=== PATIENT | female | born 1950 | race Two or more races ===

== ENCOUNTER 2021-10-21 04:42 | Day surgery (SDC) | payer OTHER ==
[2021-10-17 08:37] VITALS: BMI 27.1
[2021-10-21] MEDS ORDERED: MIDAZOLAM HCL 2 MG/2 ML SINGLE DOSE VIAL ONE (09:31)
[2021-10-21] MEDS ORDERED: SODIUM CHLORIDE 500 ML IV SCH (10:35)
[2021-10-21] MEDS ORDERED: MIDAZOLAM HCL 2 MG/2 ML SINGLE DOSE VIAL IVPUSH ONE (10:48)
[2021-10-21 11:05] LABS: BASO % 0.3 % (0-2.0); EOS % 0.4 % (0-4.5); HEMATOCRIT 34.3 % (32.4-45.2); HEMOGLOBIN 10.5 GM/dL (10.7-15.3); LYMPH % 12.1 % (8-40); MCH 24.9 pg (25.7-33.7); MCHC 30.8 g/dl (32.0-36.0); MEAN CELL VOLUME 80.9 fl (80-96); MEAN PLT VOLUME 9.8 fl (7.5-11.1); NEUT % 78.2 % (42.8-82.8); PLATELET COUNT 165 10^3/uL (134-434); RBC 4.24 M/mm3 (3.60-5.2); RDW 14.3 % (11.6-15.6); WHITE BLOOD COUNT 14.3 K/mm3 (4.0-10.0)
[2021-10-21 11:28] LABS: CALCIUM 9.3 mg/dL (8.5-10.1)
[2021-10-21 11:29] LABS: BLOOD UREA NITROGEN 15.9 mg/dL (7-18); MAGNESIUM 1.6 mg/dL (1.8-2.4)
[2021-10-21 11:32] LABS: CREATININE 0.6 mg/dL (0.55-1.3)
[2021-10-21 11:33] LABS: BILIRUBIN,TOTAL 0.9 mg/dL (0.2-1); TOT PROT 7.1 g/dl (6.4-8.2)
[2021-10-21] MEDS ORDERED: DEXTROSE 5%-NORMAL SALINE 500 ML IV ONE (12:00)
[2021-10-21] MEDS ORDERED: PALONOSETRON HCL 0.25 MG/5 ML VIAL IVPUSH ONE (12:30)
[2021-10-21] MEDS ORDERED: FOSAPREPITANT DIMEGLUMINE 150 MG in SODIUM CHLORIDE 145 ML IVPB ONE (12:30)
[2021-10-21] MEDS ORDERED: DEXAMETHASONE INJECTION 10 MG in SODIUM CHLORIDE 50 ML IVPB ONE (12:30)
[2021-10-21] MEDS ORDERED: SODIUM CHLORIDE IV ONE ×2 (13:00→14:00)
[2021-10-21] MEDS ORDERED: CISPLATIN IV ONE (13:00)
[2021-10-21] MEDS ORDERED: GEMCITABINE HCL IV ONE (14:00)
[2021-10-21] MEDS ORDERED: D5-NS + 40 MEQ KCL - 40 MEQ/1,000 ML INFUS.BAG IV SCH (14:30)
[2021-10-21] MEDS ORDERED: MAGNESIUM SULFATE IN WATER 2 GM/50 ML IVPB IVPB ONE (15:00)
[2021-10-21 17:44] VITALS: BP 123/63; PULSE 94; TEMP 98.1
[2021-10-21] MEDS ORDERED: PORTA CATH FLUSH 10 ML IVPUSH ONE ×2 (17:44→17:51)
[2021-10-22] MEDS ORDERED: PORTA CATH FLUSH 10 ML IVPUSH ONE (07:47)
== END 2021-10-21 19:05 | disposition home or self-care (01) ==
LOC: JRADIR 04:42
PROVIDERS: ATTEND Internal Medicine Hematology & Oncology
PROC: 0JH63XZ Insertion of Tunneled Vascular Access Device into Chest Subcutaneous Tissue and Fascia, Percutaneous Approach (ICD-10-PCS; principal; 2021-10-21)
PROC: 02HV33Z Insertion of Infusion Device into Superior Vena Cava, Percutaneous Approach (ICD-10-PCS; 2021-10-21)
PROC: B518ZZA Fluoroscopy of Superior Vena Cava, Guidance (ICD-10-PCS; 2021-10-21)
DX: C23 Malignant neoplasm of gallbladder (principal)
CPT/HCPCS: 36561; 96361; 96367; 96375; 96413; 96417; C1788; 36415; 80053; 83735; 85025; J1100; J1453; J2469; J9201

== ENCOUNTER 2021-10-27 07:49 | Day surgery (SDC) | payer OTHER ==
[2021-10-27] MEDS ORDERED: DEXTROSE 5%-NORMAL SALINE 500 ML IV ONE (10:00)
[2021-10-27] MEDS ORDERED: DEXAMETHASONE INJECTION 10 MG in SODIUM CHLORIDE 50 ML IVPB ONE (10:30)
[2021-10-27] MEDS ORDERED: PALONOSETRON HCL 0.25 MG/5 ML VIAL IVPUSH ONE (10:30)
[2021-10-27] MEDS ORDERED: FOSAPREPITANT DIMEGLUMINE 150 MG in SODIUM CHLORIDE 145 ML IVPB ONE (10:30)
[2021-10-27 10:43] LABS: BASO % 0.8 % (0-2.0); HEMATOCRIT 36.2 % (32.4-45.2); LYMPH % 38.4 % (8-40); MCH 24.7 pg (25.7-33.7); MCHC 30.4 g/dl (32.0-36.0); MEAN CELL VOLUME 81.3 fl (80-96); MEAN PLT VOLUME 8.4 fl (7.5-11.1); MONO % 3.2 % (3.8-10.2); NEUT % 54.6 % (42.8-82.8); PLATELET COUNT 149 10^3/uL (134-434); RBC 4.46 M/mm3 (3.60-5.2); RDW 14.4 % (11.6-15.6); WHITE BLOOD COUNT 4.3 K/mm3 (4.0-10.0)
[2021-10-27 10:46] LABS: EPI CELLS >36 /uL (0-25.1); HYALINE CASTS 2 /uL (0-3.1); URINE APPEARANCE CLEAR; URINE BACTERIA 79 /uL (0-1359); URINE BILIRUBIN NEGATIVE (NEGATIVE); URINE COLOR YELLOW; URINE GLUCOSE (UA) NEGATIVE (NEGATIVE); URINE KETONE NEGATIVE (NEGATIVE); URINE LEUK ESTERASE TRACE (NEGATIVE); URINE NITRITE NEGATIVE (NEGATIVE); URINE PROTEIN TRACE (NEGATIVE); URINE RBC 10 /uL (0-23.9); URINE UROBILINOGEN 0.2 mg/dL (0.2-1.0); URINE WBC 23 /uL (0-25.8)
[2021-10-27] MEDS ORDERED: CISPLATIN IV ONE (11:00)
[2021-10-27] MEDS ORDERED: SODIUM CHLORIDE IV ONE ×2 (11:00→12:00)
[2021-10-27 11:23] LABS: CALCIUM 9.5 mg/dL (8.5-10.1)
[2021-10-27 11:24] LABS: ALBUMIN 3.1 g/dl (3.4-5.0); BLOOD UREA NITROGEN 18.4 mg/dL (7-18)
[2021-10-27 11:26] LABS: BILIRUBIN,DIRECT 0.2 mg/dL (0.0-0.2)
[2021-10-27 11:27] LABS: CREATININE 0.6 mg/dL (0.55-1.3)
[2021-10-27 11:28] LABS: BILIRUBIN,TOTAL 0.5 mg/dL (0.2-1); TOT PROT 7.4 g/dl (6.4-8.2)
[2021-10-27] MEDS ORDERED: GEMCITABINE HCL IV ONE (12:00)
[2021-10-27] MEDS ORDERED: MAGNESIUM SULFATE IN WATER 2 GM/50 ML IVPB IVPB ONE (12:30)
[2021-10-27] MEDS ORDERED: D5-NS + 40 MEQ KCL - 20 MEQ/500 ML INFUS.BAG IV ONE (12:30)
[2021-10-27] MEDS ORDERED: LIDOCAINE 5% TOPICAL PATCH TP ONE (13:17)
[2021-10-27] MEDS ORDERED: ACETAMINOPHEN 325 MG TABLET (FP) PO ONE (13:17)
[2021-10-27 16:59] VITALS: TEMP 98.2
[2021-10-27 17:34] VITALS: BP 148/72; PULSE 65
[2021-10-27] MEDS ORDERED: LIDOCAINE PATCH REMOVAL MC ONE (22:00)
== END 2021-10-27 17:43 | disposition home or self-care (01) ==
LOC: JONCNONCHE 07:49
PROVIDERS: ATTEND Internal Medicine Hematology & Oncology
PROC: 02HV33Z Insertion of Infusion Device into Superior Vena Cava, Percutaneous Approach (ICD-10-PCS; principal; 2021-10-27)
PROC: 3E04305 Introduction of Other Antineoplastic into Central Vein, Percutaneous Approach (ICD-10-PCS; 2021-10-27)
DX: Z51.11 Encounter for antineoplastic chemotherapy (principal); C23 Malignant neoplasm of gallbladder
CPT/HCPCS: 36561; 96361; 96366; 96367; 96375; 96413; 96417; C1788; 36415; 80048; 80076; 81003; 83735; 85025; 87040; 87070; 87075; 87086; 87186; 87205; 93970-TC; J1100; J1453; J2469; J9201

== ENCOUNTER 2021-10-28 06:57 | Day surgery (SDC) | payer OTHER ==
[2021-10-28] MEDS ORDERED: PEGFILGRASTIM-CBQV (UDENYCA) 6 MG/0.6 ML SYRINGE SQ ONE (10:00)
[2021-10-28 15:56] VITALS: BP 119/59; PULSE 76; TEMP 98.1
== END 2021-10-28 15:30 | disposition home or self-care (01) ==
LOC: JONCCHEMO 06:57
PROVIDERS: ATTEND Internal Medicine Hematology & Oncology
PROC: 3E013GC Introduction of Other Therapeutic Substance into Subcutaneous Tissue, Percutaneous Approach (ICD-10-PCS; principal; 2021-10-28)
DX: C23 Malignant neoplasm of gallbladder (principal); Z76.89 Persons encountering health services in other specified circumstances
CPT/HCPCS: 96372; Q5111

== ENCOUNTER 2021-11-11 07:03 | Day surgery (SDC) | payer OTHER ==
[2021-11-11] MEDS ORDERED: IRON SUCROSE INJECTION 100 MG in SODIUM CHLORIDE 100 ML IVPB ONE (09:30)
[2021-11-11] MEDS ORDERED: DEXTROSE 5%-NORMAL SALINE 500 ML IV ONE (10:00)
[2021-11-11] MEDS ORDERED: ACETAMINOPHEN 325 MG TABLET (FP) PO ONE (10:15)
[2021-11-11] MEDS ORDERED: LIDOCAINE 5% TOPICAL PATCH TP ONE (10:15)
[2021-11-11] MEDS ORDERED: DEXAMETHASONE INJECTION 10 MG in SODIUM CHLORIDE 50 ML IVPB ONE (10:30)
[2021-11-11] MEDS ORDERED: FOSAPREPITANT DIMEGLUMINE 150 MG in SODIUM CHLORIDE 145 ML IVPB ONE (10:30)
[2021-11-11] MEDS ORDERED: PALONOSETRON HCL 0.25 MG/5 ML VIAL IVPUSH ONE (10:30)
[2021-11-11] MEDS ORDERED: SODIUM CHLORIDE IV ONE ×2 (11:00→12:00)
[2021-11-11] MEDS ORDERED: CISPLATIN IV ONE (11:00)
[2021-11-11 11:18] LABS: HEMATOCRIT 31.8 % (32.4-45.2); HEMOGLOBIN 10.1 GM/dL (10.7-15.3); MCH 26.2 pg (25.7-33.7); MCHC 31.9 g/dl (32.0-36.0); MEAN CELL VOLUME 82.1 fl (80-96); MEAN PLT VOLUME 8.6 fl (7.5-11.1); PLATELET COUNT 421 10^3/uL (134-434); RBC 3.87 M/mm3 (3.60-5.2); RDW 17.2 % (11.6-15.6); WHITE BLOOD COUNT 16.2 K/mm3 (4.0-10.0)
[2021-11-11 11:33] LABS: CALCIUM 8.9 mg/dL (8.5-10.1)
[2021-11-11 11:34] LABS: ALBUMIN 3.2 g/dl (3.4-5.0); BLOOD UREA NITROGEN 20.5 mg/dL (7-18); MAGNESIUM 2.1 mg/dL (1.8-2.4)
[2021-11-11 11:36] LABS: BILIRUBIN,DIRECT 0.1 mg/dL (0.0-0.2); CREATININE 0.7 mg/dL (0.55-1.3)
[2021-11-11 11:38] LABS: BILIRUBIN,TOTAL 0.4 mg/dL (0.2-1); TOT PROT 7.6 g/dl (6.4-8.2)
[2021-11-11] MEDS ORDERED: GEMCITABINE HCL IV ONE (12:00)
[2021-11-11] MEDS ORDERED: MAGNESIUM SULFATE IN WATER 2 GM/50 ML IVPB IVPB ONE (12:30)
[2021-11-11] MEDS ORDERED: D5-NS + 40 MEQ KCL - 20 MEQ/500 ML INFUS.BAG IV ONE (12:30)
[2021-11-11 12:40] LABS: ANISOCYTOSIS 0; HELMET CELLS 0; HOWELL-JOLLY BODIES 0; MACROCYTOSIS 0; OVALOCYTE 0; PLATELET ESTIMATE NORMAL; ROULEAU 0; SICKELED CELLS 0; TARGET CELLS 0; TEAR DROP CELLS 0; TOXIC GRANULATION 0
[2021-11-11 13:47] VITALS: TEMP 99
[2021-11-11 17:04] VITALS: BP 118/55; PULSE 74
[2021-11-11] MEDS ORDERED: LIDOCAINE PATCH REMOVAL MC ONE (22:00)
== END 2021-11-11 17:58 | disposition home or self-care (01) ==
LOC: JONCCHEMO 07:03
PROVIDERS: ATTEND Internal Medicine Hematology & Oncology
DX: Z51.11 Encounter for antineoplastic chemotherapy (principal); C23 Malignant neoplasm of gallbladder; E61.1 Iron deficiency
CPT/HCPCS: 36415; 80048; 80076; 83735; 85025; 96361; 96366; 96367; 96375; 96413; 96417; J1100; J1453; J1756; J2469; J9201

== ENCOUNTER 2021-11-17 07:00 | Day surgery (SDC) | payer OTHER ==
[2021-11-17] MEDS ORDERED: DEXTROSE 5%-NORMAL SALINE 500 ML IV ONE (09:00)
[2021-11-17] MEDS ORDERED: IRON SUCROSE INJECTION 100 MG in SODIUM CHLORIDE 100 ML IVPB ONE (09:30)
[2021-11-17] MEDS ORDERED: DEXAMETHASONE SODIUM PHOSPHATE 10 MG in SODIUM CHLORIDE 50 ML IVPB ONE (10:00)
[2021-11-17] MEDS ORDERED: FOSAPREPITANT DIMEGLUMINE 150 MG in SODIUM CHLORIDE 145 ML IVPB ONE (10:00)
[2021-11-17] MEDS ORDERED: PALONOSETRON HCL 0.25 MG/5 ML VIAL IVPUSH ONE (10:00)
[2021-11-17] MEDS ORDERED: SODIUM CHLORIDE IV ONE ×2 (10:30→11:30)
[2021-11-17] MEDS ORDERED: CISPLATIN IV ONE (10:30)
[2021-11-17] MEDS ORDERED: GEMCITABINE HCL IV ONE (11:30)
[2021-11-17] MEDS ORDERED: D5-NS + 40 MEQ KCL - 20 MEQ/500 ML INFUS.BAG IV ONE (12:00)
[2021-11-17 12:37] LABS: EOS % 0.4 % (0-4.5); HEMATOCRIT 28.9 % (32.4-45.2); HEMOGLOBIN 9.3 GM/dL (10.7-15.3); LYMPH % 27.7 % (8-40); MCH 26.6 pg (25.7-33.7); MCHC 32.4 g/dl (32.0-36.0); MEAN CELL VOLUME 82.3 fl (80-96); MEAN PLT VOLUME 8.1 fl (7.5-11.1); MONO % 4.6 % (3.8-10.2); NEUT % 65.3 % (42.8-82.8); PLATELET COUNT 417 10^3/uL (134-434); RBC 3.51 M/mm3 (3.60-5.2); RDW 18.9 % (11.6-15.6); WHITE BLOOD COUNT 6.7 K/mm3 (4.0-10.0)
[2021-11-17 12:51] LABS: BLOOD UREA NITROGEN 17.1 mg/dL (7-18); CALCIUM 9.2 mg/dL (8.5-10.1)
[2021-11-17 12:52] LABS: ALBUMIN 3.3 g/dl (3.4-5.0); MAGNESIUM 2.1 mg/dL (1.8-2.4)
[2021-11-17 12:54] LABS: BILIRUBIN,DIRECT 0.1 mg/dL (0.0-0.2); CREATININE 0.6 mg/dL (0.55-1.3)
[2021-11-17 12:56] LABS: BILIRUBIN,TOTAL 0.5 mg/dL (0.2-1); TOT PROT 7.2 g/dl (6.4-8.2)
[2021-11-17] MEDS ORDERED: MAGNESIUM SULFATE IN WATER 2 GM/50 ML IVPB IVPB ONE (13:00)
[2021-11-17 16:12] VITALS: TEMP 98.5
[2021-11-18 08:01] VITALS: BP 120/54; PULSE 86
== END 2021-11-17 17:45 | disposition home or self-care (01) ==
LOC: JONCCHEMO 07:00
PROVIDERS: ATTEND Internal Medicine Hematology & Oncology
PROC: 3E04305 Introduction of Other Antineoplastic into Central Vein, Percutaneous Approach (ICD-10-PCS; principal; 2021-11-17)
PROC: 3E043GC Introduction of Other Therapeutic Substance into Central Vein, Percutaneous Approach (ICD-10-PCS; 2021-11-17)
PROC: 3E0437Z Introduction of Electrolytic and Water Balance Substance into Central Vein, Percutaneous Approach (ICD-10-PCS; 2021-11-17)
DX: Z51.11 Encounter for antineoplastic chemotherapy (principal); C23 Malignant neoplasm of gallbladder
CPT/HCPCS: 36415; 80048; 80076; 83735; 85025; 96361; 96367; 96375; 96413; 96417; J1453; J1756; J2469

== ENCOUNTER 2021-11-18 06:51 | Day surgery (SDC) | payer OTHER ==
[2021-11-18] MEDS ORDERED: PEGFILGRASTIM-CBQV (UDENYCA) 6 MG/0.6 ML SYRINGE SQ ONE (10:00)
[2021-11-18 17:18] VITALS: BP 118/50; PULSE 72; TEMP 98.5
== END 2021-11-18 15:20 | disposition home or self-care (01) ==
LOC: JONCCHEMO 06:51
PROVIDERS: ATTEND Internal Medicine Hematology & Oncology
PROC: 3E013GC Introduction of Other Therapeutic Substance into Subcutaneous Tissue, Percutaneous Approach (ICD-10-PCS; principal; 2021-11-18)
DX: Z76.89 Persons encountering health services in other specified circumstances (principal); C23 Malignant neoplasm of gallbladder
CPT/HCPCS: 96372; Q5111

== ENCOUNTER 2021-12-01 06:56 | Day surgery (SDC) | payer OTHER ==
[2021-12-01] MEDS ORDERED: IRON SUCROSE INJECTION 100 MG in SODIUM CHLORIDE 100 ML IVPB ONE (10:00)
[2021-12-01] MEDS ORDERED: DEXTROSE 5%-NORMAL SALINE 500 ML IV ONE (10:00)
[2021-12-01 10:59] LABS: BASO % 0.3 % (0-2.0); EOS % 0.5 % (0-4.5); HEMATOCRIT 31.8 % (32.4-45.2); HEMOGLOBIN 9.9 GM/dL (10.7-15.3); LYMPH % 15.6 % (8-40); MCH 27.1 pg (25.7-33.7); MCHC 31.1 g/dl (32.0-36.0); MEAN CELL VOLUME 87.2 fl (80-96); MEAN PLT VOLUME 9.5 fl (7.5-11.1); MONO % 5.5 % (3.8-10.2); NEUT % 78.1 % (42.8-82.8); PLATELET COUNT 200 10^3/uL (134-434); RBC 3.64 M/mm3 (3.60-5.2); RDW 25.6 % (11.6-15.6); WHITE BLOOD COUNT 14.4 K/mm3 (4.0-10.0)
[2021-12-01] MEDS ORDERED: DEXAMETHASONE SODIUM PHOSPHATE 6 MG in SODIUM CHLORIDE 50 ML IVPB ONE (11:00)
[2021-12-01] MEDS ORDERED: PALONOSETRON HCL 0.25 MG/5 ML VIAL IVPUSH ONE (11:00)
[2021-12-01] MEDS ORDERED: FOSAPREPITANT DIMEGLUMINE 150 MG in SODIUM CHLORIDE 145 ML IVPB ONE (11:00)
[2021-12-01 11:13] LABS: ALBUMIN 3.4 g/dl (3.4-5.0); CALCIUM 8.9 mg/dL (8.5-10.1)
[2021-12-01 11:16] LABS: BILIRUBIN,DIRECT 0.1 mg/dL (0.0-0.2); CREATININE 0.7 mg/dL (0.55-1.3)
[2021-12-01 11:18] LABS: BILIRUBIN,TOTAL 0.5 mg/dL (0.2-1); TOT PROT 7.1 g/dl (6.4-8.2)
[2021-12-01] MEDS ORDERED: SODIUM CHLORIDE IV ONE ×2 (11:30→12:30)
[2021-12-01] MEDS ORDERED: CISPLATIN IV ONE (11:30)
[2021-12-01 11:47] LABS: ANISOCYTOSIS 2+; MACROCYTOSIS 1+; TEAR DROP CELLS 1+
[2021-12-01 12:03] LABS: PLATELET ESTIMATE ADEQUATE
[2021-12-01] MEDS ORDERED: GEMCITABINE HCL IV ONE (12:30)
[2021-12-01] MEDS ORDERED: D5-NS + 40 MEQ KCL - 20 MEQ/500 ML INFUS.BAG IV ONE (13:00)
[2021-12-01] MEDS ORDERED: MAGNESIUM SULFATE IN WATER 2 GM/50 ML IVPB IVPB ONE (13:00)
[2021-12-01 17:12] VITALS: PULSE 85; TEMP 99.1
[2021-12-01 18:01] VITALS: BP 127/58
== END 2021-12-01 17:45 | disposition home or self-care (01) ==
LOC: JONCCHEMO 06:56
PROVIDERS: ATTEND Internal Medicine Hematology & Oncology
DX: Z51.11 Encounter for antineoplastic chemotherapy (principal); C23 Malignant neoplasm of gallbladder
CPT/HCPCS: 36415; 80048; 80076; 83735; 85025; 86301; 96361; 96366; 96367; 96375; 96413; 96417; J1453; J1756; J2469

== ENCOUNTER 2021-12-08 07:41 | Day surgery (SDC) | payer OTHER ==
[2021-12-08] MEDS ORDERED: DEXTROSE 5%-NORMAL SALINE 500 ML IV ONE (09:00)
[2021-12-08] MEDS ORDERED: IRON SUCROSE INJECTION 100 MG in SODIUM CHLORIDE 100 ML IVPB ONE (09:30)
[2021-12-08] MEDS ORDERED: DEXAMETHASONE SODIUM PHOSPHATE 6 MG in SODIUM CHLORIDE 50 ML IVPB ONE (10:00)
[2021-12-08] MEDS ORDERED: PALONOSETRON HCL 0.25 MG/5 ML VIAL IVPUSH ONE (10:00)
[2021-12-08] MEDS ORDERED: FOSAPREPITANT DIMEGLUMINE 150 MG in SODIUM CHLORIDE 145 ML IVPB ONE (10:00)
[2021-12-08 10:02] LABS: BASO % 1.3 % (0-2.0); EOS % 0.2 % (0-4.5); HEMATOCRIT 27.7 % (32.4-45.2); LYMPH % 31.7 % (8-40); MCH 28.4 pg (25.7-33.7); MCHC 32.5 g/dl (32.0-36.0); MEAN CELL VOLUME 87.4 fl (80-96); MEAN PLT VOLUME 8.3 fl (7.5-11.1); MONO % 8.1 % (3.8-10.2); NEUT % 58.7 % (42.8-82.8); PLATELET COUNT 219 10^3/uL (134-434); RBC 3.17 M/mm3 (3.60-5.2); RDW 24.1 % (11.6-15.6); WHITE BLOOD COUNT 4.6 K/mm3 (4.0-10.0)
[2021-12-08 10:27] LABS: CALCIUM 8.5 mg/dL (8.5-10.1)
[2021-12-08 10:28] LABS: ALBUMIN 3.2 g/dl (3.4-5.0); BLOOD UREA NITROGEN 16.8 mg/dL (7-18); MAGNESIUM 2.1 mg/dL (1.8-2.4)
[2021-12-08 10:30] LABS: BILIRUBIN,DIRECT 0.2 mg/dL (0.0-0.2)
[2021-12-08] MEDS ORDERED: CISPLATIN IVPB ONE (10:30)
[2021-12-08] MEDS ORDERED: SODIUM CHLORIDE IVPB ONE (10:30)
[2021-12-08 10:31] LABS: CREATININE 0.6 mg/dL (0.55-1.3)
[2021-12-08 10:32] LABS: BILIRUBIN,TOTAL 0.4 mg/dL (0.2-1)
[2021-12-08 10:33] LABS: TOT PROT 6.7 g/dl (6.4-8.2)
[2021-12-08 10:45] VITALS: TEMP 98.3
[2021-12-08] MEDS ORDERED: GEMCITABINE HCL IV ONE (11:30)
[2021-12-08] MEDS ORDERED: SODIUM CHLORIDE IV ONE (11:30)
[2021-12-08] MEDS ORDERED: LORATADINE 10 MG TABLET PO ONE (12:00)
[2021-12-08] MEDS ORDERED: MAGNESIUM SULFATE IN WATER 2 GM/50 ML IVPB IVPB ONE (12:00)
[2021-12-08] MEDS ORDERED: D5-NS + 40 MEQ KCL - 20 MEQ/500 ML INFUS.BAG IV ONE (12:00)
[2021-12-08 16:30] VITALS: BP 126/67; PULSE 87
== END 2021-12-08 16:30 | disposition home or self-care (01) ==
LOC: JONCCHEMO 07:41
PROVIDERS: ATTEND Internal Medicine Hematology & Oncology
DX: Z51.11 Encounter for antineoplastic chemotherapy (principal); C23 Malignant neoplasm of gallbladder
CPT/HCPCS: 36415; 80048; 80076; 83735; 85025; 96361; 96366; 96367; 96375; 96413; 96417; J1453; J1756; J2469

== ENCOUNTER 2021-12-09 07:21 | Day surgery (SDC) | payer OTHER ==
[2021-12-09] MEDS ORDERED: PEGFILGRASTIM-CBQV (UDENYCA) 6 MG/0.6 ML SYRINGE SQ ONE (15:45)
[2021-12-09] MEDS ORDERED: LORATADINE 10 MG TABLET PO ONE (15:45)
[2021-12-09 16:55] VITALS: BP 130/47; PULSE 83; TEMP 97.8
== END 2021-12-09 16:55 | disposition home or self-care (01) ==
LOC: JONCCHEMO 07:21
PROVIDERS: ATTEND Internal Medicine Hematology & Oncology
PROC: 3E013GC Introduction of Other Therapeutic Substance into Subcutaneous Tissue, Percutaneous Approach (ICD-10-PCS; principal; 2021-12-09)
DX: C23 Malignant neoplasm of gallbladder (principal); Z76.89 Persons encountering health services in other specified circumstances
CPT/HCPCS: 96372; Q5111

== ENCOUNTER 2021-12-22 07:14 | Day surgery (SDC) | payer OTHER ==
[2021-12-22] MEDS ORDERED: DEXTROSE 5%-NORMAL SALINE 500 ML IV ONE (10:00)
[2021-12-22] MEDS ORDERED: DEXAMETHASONE SODIUM PHOSPHATE 6 MG in SODIUM CHLORIDE 50 ML IVPB ONE (10:30)
[2021-12-22] MEDS ORDERED: PALONOSETRON HCL 0.25 MG/5 ML VIAL IVPUSH ONE (10:30)
[2021-12-22] MEDS ORDERED: FOSAPREPITANT DIMEGLUMINE 150 MG in SODIUM CHLORIDE 145 ML IVPB ONE (10:30)
[2021-12-22 10:45] LABS: BASO % 0.2 % (0-2.0); EOS % 0.4 % (0-4.5); HEMATOCRIT 29.6 % (32.4-45.2); HEMOGLOBIN 9.7 GM/dL (10.7-15.3); LYMPH % 17.7 % (8-40); MCH 30.6 pg (25.7-33.7); MCHC 32.6 g/dl (32.0-36.0); MEAN CELL VOLUME 93.8 fl (80-96); MEAN PLT VOLUME 9.5 fl (7.5-11.1); MONO % 8.9 % (3.8-10.2); NEUT % 72.8 % (42.8-82.8); PLATELET COUNT 153 10^3/uL (134-434); RBC 3.16 M/mm3 (3.60-5.2); RDW 27.3 % (11.6-15.6); WHITE BLOOD COUNT 9.2 K/mm3 (4.0-10.0)
[2021-12-22 10:59] LABS: ALBUMIN 3.4 g/dl (3.4-5.0); BLOOD UREA NITROGEN 22.6 mg/dL (7-18); CALCIUM 8.6 mg/dL (8.5-10.1); IRON SERUM 74 ug/dL (50-175); MAGNESIUM 2.2 mg/dL (1.8-2.4)
[2021-12-22 11:00] LABS: TOTAL IRON BINDING CAPACITY 294 ug/dL (250-450)
[2021-12-22] MEDS ORDERED: SODIUM CHLORIDE IVPB ONE (11:00)
[2021-12-22] MEDS ORDERED: CISPLATIN IVPB ONE (11:00)
[2021-12-22 11:02] LABS: BILIRUBIN,DIRECT 0.1 mg/dL (0.0-0.2); CREATININE 0.8 mg/dL (0.55-1.3)
[2021-12-22 11:05] LABS: BILIRUBIN,TOTAL 0.3 mg/dL (0.2-1); TOT PROT 7.2 g/dl (6.4-8.2)
[2021-12-22] MEDS ORDERED: GEMCITABINE HCL IV ONE (12:00)
[2021-12-22] MEDS ORDERED: SODIUM CHLORIDE IV ONE (12:00)
[2021-12-22] MEDS ORDERED: D5-NS + 40 MEQ KCL - 20 MEQ/500 ML INFUS.BAG IV ONE (12:30)
[2021-12-22] MEDS ORDERED: MAGNESIUM SULFATE IN WATER 2 GM/50 ML IVPB IVPB ONE (12:30)
[2021-12-22] MEDS ORDERED: PORTA CATH FLUSH 10 ML IVPUSH ONE (17:30)
[2021-12-22 17:31] VITALS: BP 118/53; PULSE 73; TEMP 97.5
== END 2021-12-22 17:15 | disposition home or self-care (01) ==
LOC: JONCNONCHE 07:14
PROVIDERS: ATTEND Internal Medicine Hematology & Oncology
DX: Z51.11 Encounter for antineoplastic chemotherapy (principal); C23 Malignant neoplasm of gallbladder
CPT/HCPCS: 36415; 80048; 80076; 82728; 83540; 83550; 83735; 85025; 86301; 96361; 96366; 96367; 96375; 96413; 96417; J1453; J2469

== ENCOUNTER 2021-12-31 07:47 | Day surgery (SDC) | payer OTHER ==
[~2021-12-31 07:47] MED LIST: CISPLATIN IVPB ONE; D5-NS + 40 MEQ KCL - 20 MEQ/500 ML INFUS.BAG IV ONE; DEXAMETHASONE SODIUM PHOSPHATE 6 MG in SODIUM CHLORIDE 50 ML IVPB ONE; DEXTROSE 5%-NORMAL SALINE 500 ML IV ONE; FOSAPREPITANT DIMEGLUMINE 150 MG in SODIUM CHLORIDE 145 ML IVPB ONE; GEMCITABINE HCL IV ONE; LORATADINE 10 MG TABLET PO ONE; MAGNESIUM SULFATE IN WATER 2 GM/50 ML IVPB IVPB ONE; PALONOSETRON HCL 0.25 MG/5 ML VIAL IVPUSH ONE; SODIUM CHLORIDE IV ONE; SODIUM CHLORIDE IVPB ONE
[2021-12-31] MEDS ORDERED: DEXTROSE 5%-NORMAL SALINE 500 ML IV ONE (10:00)
[2021-12-31 10:15] LABS: BASO % 0.5 % (0-2.0); EOS % 0.1 % (0-4.5); HEMATOCRIT 28.9 % (32.4-45.2); HEMOGLOBIN 9.2 GM/dL (10.7-15.3); LYMPH % 26.7 % (8-40); MCH 30.2 pg (25.7-33.7); MCHC 31.8 g/dl (32.0-36.0); MEAN CELL VOLUME 94.8 fl (80-96); MEAN PLT VOLUME 7.3 fl (7.5-11.1); MONO % 10.6 % (3.8-10.2); NEUT % 62.1 % (42.8-82.8); PLATELET COUNT 223 10^3/uL (134-434); RBC 3.05 M/mm3 (3.60-5.2); RDW 24.1 % (11.6-15.6)
[2021-12-31] MEDS ORDERED: PALONOSETRON HCL 0.25 MG/5 ML VIAL IVPUSH ONE (10:30)
[2021-12-31] MEDS ORDERED: DEXAMETHASONE SODIUM PHOSPHATE 6 MG in SODIUM CHLORIDE 50 ML IVPB ONE (10:30)
[2021-12-31] MEDS ORDERED: FOSAPREPITANT DIMEGLUMINE 150 MG in SODIUM CHLORIDE 145 ML IVPB ONE (10:30)
[2021-12-31 10:46] LABS: ALBUMIN 3.4 g/dl (3.4-5.0); BLOOD UREA NITROGEN 17.5 mg/dL (7-18)
[2021-12-31 10:48] LABS: BILIRUBIN,DIRECT 0.1 mg/dL (0.0-0.2)
[2021-12-31 10:49] LABS: CREATININE 0.6 mg/dL (0.55-1.3)
[2021-12-31 10:50] LABS: TOT PROT 6.9 g/dl (6.4-8.2)
[2021-12-31 10:51] LABS: BILIRUBIN,TOTAL 0.2 mg/dL (0.2-1)
[2021-12-31] MEDS ORDERED: CISPLATIN IVPB ONE (11:00)
[2021-12-31] MEDS ORDERED: SODIUM CHLORIDE IVPB ONE (11:00)
[2021-12-31 11:06] LABS: ANISOCYTOSIS 2+; MACROCYTOSIS 1+; OVALOCYTE 0
[2021-12-31] MEDS ORDERED: GEMCITABINE HCL IV ONE (12:00)
[2021-12-31] MEDS ORDERED: SODIUM CHLORIDE IV ONE (12:00)
[2021-12-31] MEDS ORDERED: LORATADINE 10 MG TABLET PO ONE (12:30)
[2021-12-31] MEDS ORDERED: MAGNESIUM SULFATE IN WATER 2 GM/50 ML IVPB IVPB ONE (12:30)
[2021-12-31] MEDS ORDERED: D5-NS + 40 MEQ KCL - 20 MEQ/500 ML INFUS.BAG IV ONE (12:30)
[2021-12-31 16:04] VITALS: TEMP 98.2
[2021-12-31 16:19] VITALS: BP 110/54; PULSE 85
[2021-12-31] MEDS ORDERED: PORTA CATH FLUSH 10 ML IVPUSH ONE (16:19)
== END 2021-12-31 15:50 | disposition home or self-care (01) ==
LOC: JONCCHEMO 07:47
PROVIDERS: ATTEND Internal Medicine Hematology & Oncology
PROC: 3E04305 Introduction of Other Antineoplastic into Central Vein, Percutaneous Approach (ICD-10-PCS; principal; 2021-12-31)
PROC: 3E043GC Introduction of Other Therapeutic Substance into Central Vein, Percutaneous Approach (ICD-10-PCS; 2021-12-31)
PROC: 3E0437Z Introduction of Electrolytic and Water Balance Substance into Central Vein, Percutaneous Approach (ICD-10-PCS; 2021-12-31)
DX: Z51.11 Encounter for antineoplastic chemotherapy (principal); C23 Malignant neoplasm of gallbladder
CPT/HCPCS: 36415; 80048; 80076; 83735; 85025; 86301; 96361; 96367; 96375; 96413; 96417; J1453; J2469

== ENCOUNTER 2022-01-01 07:10 | Day surgery (SDC) | payer OTHER ==
[2022-01-01] MEDS ORDERED: LORATADINE 10 MG TABLET PO ONE ×2 (10:00→15:45)
[2022-01-01] MEDS ORDERED: PEGFILGRASTIM-CBQV (UDENYCA) 6 MG/0.6 ML SYRINGE SQ ONE (10:00)
[2022-01-01 15:42] VITALS: BP 131/56; PULSE 75; TEMP 97.7
== END 2022-01-01 15:45 | disposition home or self-care (01) ==
LOC: JONCCHEMO 07:10
PROVIDERS: ATTEND Internal Medicine Hematology & Oncology
PROC: 3E033GC Introduction of Other Therapeutic Substance into Peripheral Vein, Percutaneous Approach (ICD-10-PCS; principal; 2022-01-01)
DX: Z86.79 Personal history of other diseases of the circulatory system (principal); C23 Malignant neoplasm of gallbladder
CPT/HCPCS: 96372; Q5111

== ENCOUNTER 2022-02-10 06:59 | Day surgery (SDC) | payer OTHER ==
[~2022-02-10 06:59] MED LIST changes: -LORATADINE 10 MG TABLET PO ONE; -MAGNESIUM SULFATE IN WATER 2 GM/50 ML IVPB IVPB ONE
[2022-02-10] MEDS ORDERED: SODIUM CHLORIDE 250 ML IV ONE (11:00)
[2022-02-10] MEDS ORDERED: DEXAMETHASONE SODIUM PHOSPHATE 10 MG in SODIUM CHLORIDE 50 ML IVPB ONE (11:30)
[2022-02-10] MEDS ORDERED: ATROPINE SO4 0.4 MG/1 ML VIAL IVPUSH ONE (11:30)
[2022-02-10] MEDS ORDERED: PALONOSETRON HCL 0.25 MG/5 ML VIAL IVPUSH ONE (11:30)
[2022-02-10] MEDS ORDERED: IRINOTECAN HCL 320 MG in DEXTROSE 5%-WATER - 500 ML IVPB ONE (12:00)
[2022-02-10] MEDS ORDERED: LEUCOVORIN INJECTION - 704 MG in DEXTROSE 5%-WATER - 250 ML IVPB ONE (12:00)
[2022-02-10 12:44] LABS: BASO % 0.4 % (0-2.0); EOS % 0.6 % (0-4.5); MCH 30.1 pg (25.7-33.7); MCHC 32.3 g/dl (32.0-36.0); MEAN CELL VOLUME 93.4 fl (80-96); MEAN PLT VOLUME 9.5 fl (7.5-11.1); MONO % 6.4 % (3.8-10.2); NEUT % 71.6 % (42.8-82.8); PLATELET COUNT 165 10^3/uL (134-434); RBC 3.65 M/mm3 (3.60-5.2); RDW 15.9 % (11.6-15.6); WHITE BLOOD COUNT 7.3 K/mm3 (4.0-10.0)
[2022-02-10 13:00] LABS: ALBUMIN 3.5 g/dl (3.4-5.0)
[2022-02-10 13:03] LABS: BILIRUBIN,DIRECT 0.2 mg/dL (0.0-0.2)
[2022-02-10 13:05] LABS: BILIRUBIN,TOTAL 0.5 mg/dL (0.2-1); TOT PROT 7.3 g/dl (6.4-8.2)
[2022-02-10 13:06] LABS: BLOOD UREA NITROGEN 18.8 mg/dL (7-18); MAGNESIUM 2.3 mg/dL (1.8-2.4)
[2022-02-10 13:09] LABS: CREATININE 0.6 mg/dL (0.55-1.3)
[2022-02-10] MEDS ORDERED: FLUOROURACIL 2,500 MG/50 ML VIAL IVPUSH ONE (13:30)
[2022-02-10] MEDS ORDERED: FLUOROURACIL 4,225 MG in SODIUM CHLORIDE 7.5 ML CP ONE (13:45)
[2022-02-10 15:37] VITALS: TEMP 98.2
[2022-02-10] MEDS ORDERED: PORTA CATH FLUSH 10 ML IVPUSH PRN (15:54)
[2022-02-10 16:36] VITALS: BP 141/63; PULSE 67
[2022-02-11] MEDS ORDERED: PORTA CATH FLUSH 10 ML IVPUSH PRN (07:28)
== END 2022-02-10 16:45 | disposition home or self-care (01) ==
LOC: JONCCHEMO 06:59
PROVIDERS: ATTEND Internal Medicine Hematology & Oncology
DX: Z51.11 Encounter for antineoplastic chemotherapy (principal); C23 Malignant neoplasm of gallbladder
CPT/HCPCS: 36415; 80048; 80076; 82728; 83540; 83550; 83735; 85025; 96375; 96413; G0498; J2469; J9206

== ENCOUNTER 2022-02-12 07:23 | Day surgery (SDC) | payer OTHER ==
[~2022-02-12 07:23] MED LIST changes: +MAGNESIUM SULFATE IN WATER 2 GM/50 ML IVPB IVPB ONE
[2022-02-12] MEDS ORDERED: IRON SUCROSE INJECTION 200 MG in SODIUM CHLORIDE 100 ML IVPB ONE (14:30)
[2022-02-12] MEDS ORDERED: POTASSIUM CHLORIDE IV ONE (14:30)
[2022-02-12] MEDS ORDERED: MAGNESIUM SULFATE IV ONE (14:30)
[2022-02-12] MEDS ORDERED: SODIUM CHLORIDE IV ONE (14:30)
[2022-02-12 14:51] VITALS: TEMP 98.4
[2022-02-12] MEDS ORDERED: PORTA CATH FLUSH 10 ML IVPUSH PRN (14:51)
[2022-02-12 17:16] VITALS: BP 148/69; PULSE 68
== END 2022-02-12 17:15 | disposition home or self-care (01) ==
LOC: JONCNONCHE 07:23
PROVIDERS: ATTEND Internal Medicine Hematology & Oncology
PROC: 3E043GC Introduction of Other Therapeutic Substance into Central Vein, Percutaneous Approach (ICD-10-PCS; principal; 2022-02-12)
DX: C23 Malignant neoplasm of gallbladder (principal); Z76.89 Persons encountering health services in other specified circumstances
CPT/HCPCS: 96365; 96366; 96367; J1756

== ENCOUNTER 2022-02-24 07:37 | Day surgery (SDC) | payer OTHER ==
[2022-02-24] MEDS ORDERED: SODIUM CHLORIDE 250 ML IV ONE (09:00)
[2022-02-24] MEDS ORDERED: PALONOSETRON HCL 0.25 MG/5 ML VIAL IVPUSH ONE (09:30)
[2022-02-24] MEDS ORDERED: ATROPINE SO4 0.4 MG/1 ML VIAL IVPUSH ONE (09:30)
[2022-02-24] MEDS ORDERED: DEXAMETHASONE SODIUM PHOSPHATE 10 MG in SODIUM CHLORIDE 50 ML IVPB ONE (09:30)
[2022-02-24] MEDS ORDERED: IRINOTECAN HCL 320 MG in DEXTROSE 5%-WATER - 500 ML IVPB ONE (10:00)
[2022-02-24] MEDS ORDERED: LEUCOVORIN INJECTION - 700 MG in DEXTROSE 5%-WATER - 250 ML IVPB ONE (10:00)
[2022-02-24] MEDS ORDERED: ACETAMINOPHEN 325 MG TABLET (FP) PO ONE (11:00)
[2022-02-24 11:18] LABS: BASO % 0.4 % (0-2.0); EOS % 1.2 % (0-4.5); HEMOGLOBIN 10.7 GM/dL (10.7-15.3); LYMPH % 30.8 % (8-40); MCH 29.3 pg (25.7-33.7); MCHC 31.4 g/dl (32.0-36.0); MEAN CELL VOLUME 93.2 fl (80-96); MEAN PLT VOLUME 9.3 fl (7.5-11.1); MONO % 9.4 % (3.8-10.2); NEUT % 58.2 % (42.8-82.8); PLATELET COUNT 123 10^3/uL (134-434); RBC 3.65 M/mm3 (3.60-5.2); RDW 16.8 % (11.6-15.6); WHITE BLOOD COUNT 3.7 K/mm3 (4.0-10.0)
[2022-02-24] MEDS ORDERED: FLUOROURACIL 2,500 MG/50 ML VIAL IVPUSH ONE (11:30)
[2022-02-24] MEDS ORDERED: FLUOROURACIL 4,200 MG in SODIUM CHLORIDE 8 ML CP ONE (11:45)
[2022-02-24 11:46] LABS: BLOOD UREA NITROGEN 13.8 mg/dL (7-18); MAGNESIUM 2.4 mg/dL (1.8-2.4)
[2022-02-24 11:47] LABS: ALBUMIN 3.4 g/dl (3.4-5.0)
[2022-02-24 11:49] LABS: BILIRUBIN,DIRECT 0.1 mg/dL (0.0-0.2)
[2022-02-24 11:50] LABS: CREATININE 0.6 mg/dL (0.55-1.3)
[2022-02-24 11:51] LABS: TOT PROT 7.1 g/dl (6.4-8.2)
[2022-02-24 12:07] LABS: BILIRUBIN,TOTAL 0.4 mg/dL (0.2-1)
[2022-02-24 18:10] VITALS: TEMP 97.6
[2022-02-24] MEDS ORDERED: PORTA CATH FLUSH 10 ML IVPUSH PRN (18:10)
[2022-02-24 18:12] VITALS: BP 148/67; PULSE 63
== END 2022-02-24 15:00 | disposition home or self-care (01) ==
LOC: JONCCHEMO 07:37
PROVIDERS: ATTEND Internal Medicine Hematology & Oncology
DX: Z51.11 Encounter for antineoplastic chemotherapy (principal); C23 Malignant neoplasm of gallbladder
CPT/HCPCS: 36415; 80048; 80076; 83735; 85025; 96367; 96375; 96411; 96413; G0498; J2469; J9206

== ENCOUNTER 2022-02-26 07:54 | Day surgery (SDC) | payer OTHER ==
[2022-02-26] MEDS ORDERED: MAGNESIUM SO4 IV ONE ×2 (09:45)
[2022-02-26] MEDS ORDERED: POTASSIUM CHLORIDE IV ONE ×2 (09:45)
[2022-02-26] MEDS ORDERED: SODIUM CHLORIDE IV ONE ×2 (09:45)
[2022-02-26] MEDS ORDERED: IRON SUCROSE INJECTION 200 MG in SODIUM CHLORIDE 100 ML IVPB ONE (10:00)
[2022-02-26] MEDS ORDERED: FAMOTIDINE 20 MG/50 ML IVPB 20 MG/50 ML MG IVPB ONE (14:12)
[2022-02-26 16:01] VITALS: TEMP 98.6
[2022-02-26] MEDS ORDERED: PORTA CATH FLUSH 10 ML IVPUSH PRN (16:23)
[2022-02-27 08:05] VITALS: BP 158/72; PULSE 74
== END 2022-02-26 17:20 | disposition home or self-care (01) ==
LOC: JONCCHEMO 07:54
PROVIDERS: ATTEND Internal Medicine Hematology & Oncology
PROC: 3E043GC Introduction of Other Therapeutic Substance into Central Vein, Percutaneous Approach (ICD-10-PCS; principal; 2022-02-26)
PROC: 3E0437Z Introduction of Electrolytic and Water Balance Substance into Central Vein, Percutaneous Approach (ICD-10-PCS; 2022-02-26)
DX: Z76.89 Persons encountering health services in other specified circumstances (principal); C23 Malignant neoplasm of gallbladder
CPT/HCPCS: 96365; 96367; J1756

== ENCOUNTER 2022-03-19 08:35 | Day surgery (SDC) | payer OTHER ==
[2022-03-19] MEDS ORDERED: SODIUM CHLORIDE 250 ML IV ONE (09:15)
[2022-03-19] MEDS ORDERED: ATROPINE SO4 0.4 MG/1 ML VIAL SQ ONE (10:00)
[2022-03-19] MEDS ORDERED: DEXAMETHASONE SODIUM PHOSPHATE 10 MG in SODIUM CHLORIDE 50 ML IVPB ONE (10:00)
[2022-03-19] MEDS ORDERED: PALONOSETRON HCL 0.25 MG/5 ML VIAL IVPUSH ONE (10:00)
[2022-03-19] MEDS ORDERED: LEUCOVORIN INJECTION - 700 MG in DEXTROSE 5%-WATER - 250 ML IVPB ONE (10:30)
[2022-03-19] MEDS ORDERED: IRINOTECAN HCL 320 MG in DEXTROSE 5%-WATER - 500 ML IVPB ONE (11:00)
[2022-03-19] MEDS ORDERED: FLUOROURACIL 5,000 MG/100 ML VIAL IVPUSH ONE (12:30)
[2022-03-19] MEDS ORDERED: FLUOROURACIL 4,200 MG in SODIUM CHLORIDE 8 ML CP ONE (12:45)
[2022-03-19 17:41] VITALS: BP 123/58; PULSE 83; TEMP 98.1
[2022-03-19] MEDS ORDERED: PORTA CATH FLUSH 10 ML IVPUSH PRN (17:41)
== END 2022-03-19 14:15 | disposition home or self-care (01) ==
LOC: JONCCHEMO 08:35
PROVIDERS: ATTEND Internal Medicine Hematology & Oncology
DX: Z51.11 Encounter for antineoplastic chemotherapy (principal); C23 Malignant neoplasm of gallbladder
CPT/HCPCS: 96361; 96366; 96367; 96375; 96411; 96413; 96415; G0498; J2469; J9206

== ENCOUNTER 2022-03-21 10:30 | Day surgery (SDC) | payer OTHER ==
[~2022-03-21 10:30] MED LIST changes: -CISPLATIN IVPB ONE; -D5-NS + 40 MEQ KCL - 20 MEQ/500 ML INFUS.BAG IV ONE; -DEXAMETHASONE SODIUM PHOSPHATE 6 MG in SODIUM CHLORIDE 50 ML IVPB ONE; -DEXTROSE 5%-NORMAL SALINE 500 ML IV ONE; -FOSAPREPITANT DIMEGLUMINE 150 MG in SODIUM CHLORIDE 145 ML IVPB ONE; -GEMCITABINE HCL IV ONE; +IRON SUCROSE INJECTION 200 MG in SODIUM CHLORIDE 90 ML IVPB ONE; -MAGNESIUM SULFATE IN WATER 2 GM/50 ML IVPB IVPB ONE; +MAGNESIUM SULFATE IV ONE; +MAGNESIUM SULFATE IVPB ONE; -PALONOSETRON HCL 0.25 MG/5 ML VIAL IVPUSH ONE; +POTASSIUM CHLORIDE IV ONE; +POTASSIUM CHLORIDE IVPB ONE
[2022-03-21] MEDS ORDERED: PORTA CATH FLUSH 10 ML IVPUSH PRN (13:11)
[2022-03-21 14:13] VITALS: BP 123/65; PULSE 85; TEMP 98.5
== END 2022-03-21 14:10 | disposition home or self-care (01) ==
LOC: JONCCHEMO 10:30 → J7W 10:31 → JONCCHEMO 14:10
PROVIDERS: ATTEND Internal Medicine Hematology & Oncology
PROC: 3E043GC Introduction of Other Therapeutic Substance into Central Vein, Percutaneous Approach (ICD-10-PCS; principal; 2022-03-21)
DX: C23 Malignant neoplasm of gallbladder (principal); C78.7 Secondary malignant neoplasm of liver and intrahepatic bile duct; C78.02 Secondary malignant neoplasm of left lung; C78.01 Secondary malignant neoplasm of right lung; Z76.89 Persons encountering health services in other specified circumstances
CPT/HCPCS: 96365; 96366; 96367; J1756

== ENCOUNTER 2022-03-31 07:08 | Day surgery (SDC) | payer OTHER ==
[2022-03-31] MEDS ORDERED: ATROPINE SO4 0.4 MG/1 ML VIAL SQ ONE (10:00)
[2022-03-31] MEDS ORDERED: DEXAMETHASONE SODIUM PHOSPHATE 10 MG in SODIUM CHLORIDE 50 ML IVPB ONE (10:00)
[2022-03-31] MEDS ORDERED: PALONOSETRON HCL 0.25 MG/5 ML VIAL IVPUSH ONE (10:00)
[2022-03-31] MEDS ORDERED: SODIUM CHLORIDE 250 ML IV ONE (10:00)
[2022-03-31] MEDS ORDERED: LEUCOVORIN INJECTION - 672 MG in DEXTROSE 5%-WATER - 250 ML IVPB ONE (10:30)
[2022-03-31] MEDS ORDERED: WATER IVPB ONE (11:00)
[2022-03-31] MEDS ORDERED: DEXTROSE 5% IVPB ONE (11:00)
[2022-03-31] MEDS ORDERED: IRINOTECAN HCL IVPB ONE (11:00)
[2022-03-31 11:47] LABS: BASO % 0.6 % (0-2.0); EOS % 4.5 % (0-4.5); HEMATOCRIT 27.9 % (32.4-45.2); HEMOGLOBIN 9.2 GM/dL (10.7-15.3); LYMPH % 35.5 % (8-40); MCH 29.7 pg (25.7-33.7); MCHC 32.9 g/dl (32.0-36.0); MEAN CELL VOLUME 90.4 fl (80-96); MONO % 9.4 % (3.8-10.2); PLATELET COUNT 135 10^3/uL (134-434); RBC 3.09 M/mm3 (3.60-5.2); RDW 17.8 % (11.6-15.6); WHITE BLOOD COUNT 3.1 K/mm3 (4.0-10.0)
[2022-03-31 12:15] LABS: CALCIUM 8.6 mg/dL (8.5-10.1)
[2022-03-31 12:16] LABS: ALBUMIN 2.8 g/dl (3.4-5.0); BLOOD UREA NITROGEN 10.1 mg/dL (7-18); MAGNESIUM 2.2 mg/dL (1.8-2.4)
[2022-03-31 12:18] LABS: BILIRUBIN,DIRECT 0.2 mg/dL (0.0-0.2)
[2022-03-31 12:19] LABS: CREATININE 0.7 mg/dL (0.55-1.3)
[2022-03-31 12:20] LABS: BILIRUBIN,TOTAL 0.6 mg/dL (0.2-1)
[2022-03-31] MEDS ORDERED: FLUOROURACIL 2,500 MG/50 ML VIAL IVPUSH ONE (12:30)
[2022-03-31] MEDS ORDERED: FLUOROURACIL 4,025 MG in SODIUM CHLORIDE 11.5 ML CP ONE (13:00)
[2022-03-31 17:39] VITALS: BP 119/60; PULSE 77; TEMP 98.5
== END 2022-03-31 16:10 | disposition home or self-care (01) ==
LOC: JONCCHEMO 07:08
PROVIDERS: ATTEND Internal Medicine Hematology & Oncology
PROC: 3E04305 Introduction of Other Antineoplastic into Central Vein, Percutaneous Approach (ICD-10-PCS; principal; 2022-03-31)
PROC: 3E0437Z Introduction of Electrolytic and Water Balance Substance into Central Vein, Percutaneous Approach (ICD-10-PCS; 2022-03-31)
PROC: 3E04305 Introduction of Other Antineoplastic into Central Vein, Percutaneous Approach (ICD-10-PCS; 2022-03-31)
PROC: 3E043GC Introduction of Other Therapeutic Substance into Central Vein, Percutaneous Approach (ICD-10-PCS; 2022-03-31)
PROC: 3E013GC Introduction of Other Therapeutic Substance into Subcutaneous Tissue, Percutaneous Approach (ICD-10-PCS; 2022-03-31)
DX: Z51.11 Encounter for antineoplastic chemotherapy (principal); C23 Malignant neoplasm of gallbladder; C78.02 Secondary malignant neoplasm of left lung; C78.01 Secondary malignant neoplasm of right lung
CPT/HCPCS: 36415; 80048; 80076; 83735; 85025; 96366; 96367; 96372; 96375; 96413; G0498; J2469; J9206

== ENCOUNTER 2022-04-02 06:08 | Day surgery (SDC) | payer OTHER ==
[2022-04-02] MEDS ORDERED: SODIUM CHLORIDE IV ONE (15:00)
[2022-04-02] MEDS ORDERED: MAGNESIUM SULFATE IV ONE (15:00)
[2022-04-02] MEDS ORDERED: IRON SUCROSE INJECTION 200 MG in SODIUM CHLORIDE 100 ML IVPB ONE (15:00)
[2022-04-02] MEDS ORDERED: POTASSIUM CHLORIDE IV ONE (15:00)
[2022-04-02 17:53] VITALS: TEMP 98.9
[2022-04-02 17:55] VITALS: BP 134/57; PULSE 75
[2022-04-02] MEDS ORDERED: PORTA CATH FLUSH 10 ML IVPUSH PRN (17:55)
== END 2022-04-02 18:02 | disposition home or self-care (01) ==
LOC: JONCCHEMO 06:08
PROVIDERS: ATTEND Internal Medicine Hematology & Oncology
DX: Z76.89 Persons encountering health services in other specified circumstances (principal); C23 Malignant neoplasm of gallbladder; C78.02 Secondary malignant neoplasm of left lung; C78.01 Secondary malignant neoplasm of right lung
CPT/HCPCS: 96365; 96366; 96367; J1756

== ENCOUNTER 2022-04-03 07:44 | Day surgery (SDC) | payer OTHER ==
[2022-04-03] MEDS ORDERED: TBO-FILGRASTIM 300 MCG/0.5 ML DISP.SYRINGE SQ ONE (10:00)
[2022-04-03 15:22] VITALS: BP 113/65; PULSE 90; TEMP 98.8
== END 2022-04-03 15:25 | disposition home or self-care (01) ==
LOC: JONCCHEMO 07:44
PROVIDERS: ATTEND Internal Medicine Hematology & Oncology
PROC: 3E013GC Introduction of Other Therapeutic Substance into Subcutaneous Tissue, Percutaneous Approach (ICD-10-PCS; principal; 2022-04-03)
DX: Z76.89 Persons encountering health services in other specified circumstances (principal); C23 Malignant neoplasm of gallbladder; C78.02 Secondary malignant neoplasm of left lung; C78.01 Secondary malignant neoplasm of right lung
CPT/HCPCS: 96372; J1447

== ENCOUNTER 2022-04-04 13:01 | Day surgery (SDC) | payer OTHER ==
[~2022-04-04 13:01] MED LIST changes: -IRON SUCROSE INJECTION 200 MG in SODIUM CHLORIDE 90 ML IVPB ONE; -MAGNESIUM SULFATE IV ONE; -MAGNESIUM SULFATE IVPB ONE; -POTASSIUM CHLORIDE IV ONE; -POTASSIUM CHLORIDE IVPB ONE; -SODIUM CHLORIDE IV ONE; -SODIUM CHLORIDE IVPB ONE; +TBO-FILGRASTIM 300 MCG/0.5 ML DISP.SYRINGE SQ ONE
[2022-04-04 18:53] VITALS: BP 113/58; PULSE 82; TEMP 98.1
== END 2022-04-04 13:30 | disposition home or self-care (01) ==
LOC: JONCCHEMO 13:01 → J7W 13:02 → JONCCHEMO 13:30
PROVIDERS: ATTEND Internal Medicine Hematology & Oncology
PROC: 3E013GC Introduction of Other Therapeutic Substance into Subcutaneous Tissue, Percutaneous Approach (ICD-10-PCS; principal; 2022-04-04)
DX: Z76.89 Persons encountering health services in other specified circumstances (principal); C23 Malignant neoplasm of gallbladder; C78.02 Secondary malignant neoplasm of left lung; C78.01 Secondary malignant neoplasm of right lung
CPT/HCPCS: 96372; J1447

== ENCOUNTER 2022-04-14 07:29 | Day surgery (SDC) | payer OTHER ==
[2022-04-14] MEDS ORDERED: SODIUM CHLORIDE 250 ML IV ONE (09:00)
[2022-04-14] MEDS ORDERED: PALONOSETRON HCL 0.25 MG/5 ML VIAL IVPUSH ONE (09:30)
[2022-04-14] MEDS ORDERED: ATROPINE SO4 0.4 MG/1 ML VIAL SQ ONE (09:30)
[2022-04-14] MEDS ORDERED: DEXAMETHASONE SODIUM PHOSPHATE 10 MG in SODIUM CHLORIDE 50 ML IVPB ONE (09:30)
[2022-04-14] MEDS ORDERED: WATER IVPB ONE (10:00)
[2022-04-14] MEDS ORDERED: IRINOTECAN HCL IVPB ONE (10:00)
[2022-04-14] MEDS ORDERED: DEXTROSE 5% IVPB ONE (10:00)
[2022-04-14] MEDS ORDERED: LEUCOVORIN INJECTION - 684 MG in DEXTROSE 5%-WATER - 250 ML IVPB ONE (10:00)
[2022-04-14] MEDS ORDERED: FLUOROURACIL 2,500 MG/50 ML VIAL IVPUSH ONE (11:30)
[2022-04-14] MEDS ORDERED: FLUOROURACIL 4,100 MG in SODIUM CHLORIDE 10 ML CP ONE (11:45)
[2022-04-14 12:10] LABS: BASO % 0.7 % (0-2.0); EOS % 2.4 % (0-4.5); HEMATOCRIT 30.2 % (32.4-45.2); HEMOGLOBIN 9.6 GM/dL (10.7-15.3); LYMPH % 27.8 % (8-40); MCH 29.7 pg (25.7-33.7); MCHC 31.7 g/dl (32.0-36.0); MEAN CELL VOLUME 93.8 fl (80-96); MEAN PLT VOLUME 8.9 fl (7.5-11.1); MONO % 11.2 % (3.8-10.2); NEUT % 57.9 % (42.8-82.8); PLATELET COUNT 152 10^3/uL (134-434); RBC 3.22 M/mm3 (3.60-5.2); RDW 22.4 % (11.6-15.6); WHITE BLOOD COUNT 4.4 K/mm3 (4.0-10.0)
[2022-04-14 12:40] LABS: ALBUMIN 3.1 g/dl (3.4-5.0)
[2022-04-14 12:41] LABS: BLOOD UREA NITROGEN 18.2 mg/dL (7-18); MAGNESIUM 2.5 mg/dL (1.8-2.4)
[2022-04-14 12:43] LABS: BILIRUBIN,DIRECT 0.2 mg/dL (0.0-0.2); BILIRUBIN,TOTAL 0.5 mg/dL (0.2-1); CREATININE 0.6 mg/dL (0.55-1.3)
[2022-04-14 12:46] LABS: TOT PROT 7.2 g/dl (6.4-8.2)
[2022-04-14 13:32] VITALS: TEMP 98.4
[2022-04-14] MEDS ORDERED: PORTA CATH FLUSH 10 ML IVPUSH PRN (17:49)
[2022-04-14 17:50] VITALS: BP 114/58; PULSE 76
== END 2022-04-14 16:45 | disposition home or self-care (01) ==
LOC: JONCCHEMO 07:29
PROVIDERS: ATTEND Internal Medicine Hematology & Oncology
DX: Z51.11 Encounter for antineoplastic chemotherapy (principal); C23 Malignant neoplasm of gallbladder; C78.02 Secondary malignant neoplasm of left lung; C78.01 Secondary malignant neoplasm of right lung
CPT/HCPCS: 36415; 80048; 80076; 83735; 85025; 96367; 96375; 96411; 96413; G0498; J2469; J9206

== ENCOUNTER 2022-04-16 07:07 | Day surgery (SDC) | payer OTHER ==
[2022-04-16] MEDS ORDERED: SODIUM CHLORIDE IV ONE (10:00)
[2022-04-16] MEDS ORDERED: POTASSIUM CHLORIDE IV ONE (10:00)
[2022-04-16] MEDS ORDERED: MAGNESIUM SULFATE IV ONE (10:00)
[2022-04-16] MEDS ORDERED: IRON SUCROSE INJECTION 200 MG in SODIUM CHLORIDE 100 ML IVPB ONE (13:00)
[2022-04-16 16:10] VITALS: TEMP 98.8
[2022-04-16 16:17] VITALS: BP 116/62; PULSE 66
[2022-04-16] MEDS ORDERED: PORTA CATH FLUSH 10 ML IVPUSH PRN (16:17)
== END 2022-04-16 15:15 | disposition home or self-care (01) ==
LOC: JONCCHEMO 07:07
PROVIDERS: ATTEND Internal Medicine Hematology & Oncology
PROC: 3E043GC Introduction of Other Therapeutic Substance into Central Vein, Percutaneous Approach (ICD-10-PCS; principal; 2022-04-16)
DX: C23 Malignant neoplasm of gallbladder (principal); C78.02 Secondary malignant neoplasm of left lung; C78.01 Secondary malignant neoplasm of right lung; C78.7 Secondary malignant neoplasm of liver and intrahepatic bile duct; C78.6 Secondary malignant neoplasm of retroperitoneum and peritoneum; E61.1 Iron deficiency; Z76.89 Persons encountering health services in other specified circumstances
CPT/HCPCS: 96365; 96366; 96367; J1756

== ENCOUNTER 2022-04-28 06:12 | Day surgery (SDC) | payer OTHER ==
[2022-04-28] MEDS ORDERED: SODIUM CHLORIDE 250 ML IV ONE (09:00)
[2022-04-28] MEDS ORDERED: DEXAMETHASONE SODIUM PHOSPHATE 10 MG in SODIUM CHLORIDE 50 ML IVPB ONE (09:30)
[2022-04-28] MEDS ORDERED: ATROPINE SO4 0.4 MG/1 ML VIAL SQ ONE (09:30)
[2022-04-28] MEDS ORDERED: PALONOSETRON HCL 0.25 MG/5 ML VIAL IVPUSH ONE (09:30)
[2022-04-28] MEDS ORDERED: DEXTROSE 5% IVPB ONE ×2 (10:00)
[2022-04-28] MEDS ORDERED: LEUCOVORIN IVPB ONE (10:00)
[2022-04-28] MEDS ORDERED: WATER IVPB ONE ×2 (10:00)
[2022-04-28] MEDS ORDERED: IRINOTECAN HCL IVPB ONE (10:00)
[2022-04-28] MEDS ORDERED: FLUOROURACIL 2,500 MG/50 ML VIAL IVPUSH ONE (11:30)
[2022-04-28] MEDS ORDERED: FLUOROURACIL 4,075 MG in SODIUM CHLORIDE 10.5 ML CP ONE (11:45)
[2022-04-28 13:22] LABS: BASO % 0.6 % (0-2.0); EOS % 5.5 % (0-4.5); HEMATOCRIT 29.4 % (32.4-45.2); HEMOGLOBIN 9.4 GM/dL (10.7-15.3); MCHC 31.9 g/dl (32.0-36.0); MEAN CELL VOLUME 93.9 fl (80-96); MEAN PLT VOLUME 8.7 fl (7.5-11.1); MONO % 15.7 % (3.8-10.2); NEUT % 47.2 % (42.8-82.8); PLATELET COUNT 128 10^3/uL (134-434); RBC 3.13 M/mm3 (3.60-5.2); RDW 21.5 % (11.6-15.6); WHITE BLOOD COUNT 3.7 K/mm3 (4.0-10.0)
[2022-04-28 13:48] LABS: CALCIUM 8.7 mg/dL (8.5-10.1)
[2022-04-28 13:49] LABS: ALBUMIN 2.9 g/dl (3.4-5.0); BLOOD UREA NITROGEN 13.1 mg/dL (7-18)
[2022-04-28 13:50] LABS: ANISOCYTOSIS 1+; MACROCYTOSIS 1+; MAGNESIUM 2.2 mg/dL (1.8-2.4)
[2022-04-28 13:52] LABS: BILIRUBIN,DIRECT 0.2 mg/dL (0.0-0.2); CREATININE 0.6 mg/dL (0.55-1.3)
[2022-04-28 13:53] LABS: BILIRUBIN,TOTAL 0.4 mg/dL (0.2-1); TOT PROT 6.8 g/dl (6.4-8.2)
[2022-04-28 18:47] VITALS: RESP 18; TEMP 98.6
[2022-04-28 18:59] VITALS: BP 133/58; PULSE 63
[2022-04-28] MEDS ORDERED: PORTA CATH FLUSH 10 ML IVPUSH PRN (18:59)
== END 2022-04-28 18:15 | disposition home or self-care (01) ==
LOC: JONCNONCHE 06:12
PROVIDERS: ATTEND Internal Medicine Hematology & Oncology
DX: Z51.11 Encounter for antineoplastic chemotherapy (principal); C23 Malignant neoplasm of gallbladder; C78.02 Secondary malignant neoplasm of left lung; C78.7 Secondary malignant neoplasm of liver and intrahepatic bile duct; C78.6 Secondary malignant neoplasm of retroperitoneum and peritoneum; E61.1 Iron deficiency
CPT/HCPCS: 36415; 80048; 80076; 82728; 83540; 83550; 83735; 85025; 86301; 96361; 96366; 96367; 96375; 96411; 96413; G0498; J2469; J9206

== ENCOUNTER 2022-04-30 06:42 | Day surgery (SDC) | payer OTHER ==
[2022-04-30] MEDS ORDERED: MAGNESIUM SULFATE IV ONE (10:00)
[2022-04-30] MEDS ORDERED: SODIUM CHLORIDE IV ONE (10:00)
[2022-04-30] MEDS ORDERED: POTASSIUM CHLORIDE IV ONE (10:00)
[2022-04-30 15:55] VITALS: RESP 20; TEMP 98.6
[2022-04-30] MEDS ORDERED: PORTA CATH FLUSH 10 ML IVPUSH PRN (16:00)
[2022-04-30 18:40] VITALS: BP 130/60; PULSE 75
== END 2022-04-30 16:15 | disposition home or self-care (01) ==
LOC: JONCCHEMO 06:42
PROVIDERS: ATTEND Internal Medicine Hematology & Oncology
PROC: 3E043GC Introduction of Other Therapeutic Substance into Central Vein, Percutaneous Approach (ICD-10-PCS; principal; 2022-04-30)
DX: C23 Malignant neoplasm of gallbladder (principal); C78.01 Secondary malignant neoplasm of right lung; C78.7 Secondary malignant neoplasm of liver and intrahepatic bile duct; C78.6 Secondary malignant neoplasm of retroperitoneum and peritoneum; E61.1 Iron deficiency; Z76.89 Persons encountering health services in other specified circumstances
CPT/HCPCS: 96365

== ENCOUNTER 2022-05-01 13:30 | Day surgery (SDC) | payer OTHER ==
[2022-05-01 16:38] VITALS: BP 111/53; PULSE 77; RESP 20; TEMP 98.2
== END 2022-05-01 16:53 | disposition home or self-care (01) ==
LOC: JONCCHEMO 16:53 → EDSTATUS 17:30
PROVIDERS: ATTEND Internal Medicine Hematology & Oncology
PROC: 3E013GC Introduction of Other Therapeutic Substance into Subcutaneous Tissue, Percutaneous Approach (ICD-10-PCS; principal; 2022-05-01)
DX: C23 Malignant neoplasm of gallbladder (principal); C78.01 Secondary malignant neoplasm of right lung; C78.7 Secondary malignant neoplasm of liver and intrahepatic bile duct; C78.6 Secondary malignant neoplasm of retroperitoneum and peritoneum; E61.1 Iron deficiency; M54.9 Dorsalgia, unspecified; Z76.89 Persons encountering health services in other specified circumstances
CPT/HCPCS: 71260-TC; 72157-TC; 74177-TC; 96372; A9579; C1887; J1447; Q9967

== ENCOUNTER → 2022-05-20 | Day surgery (SDC) | payer OTHER ==
[2022-05-20 10:34] LABS: BASO % 0.3 % (0-2.0); EOS % 0.7 % (0-4.5); HEMATOCRIT 31.2 % (32.4-45.2); HEMOGLOBIN 9.9 GM/dL (10.7-15.3); MCH 29.8 pg (25.7-33.7); MCHC 31.7 g/dl (32.0-36.0); MONO % 10.7 % (3.8-10.2); NEUT % 76.3 % (42.8-82.8); PLATELET COUNT 70 10^3/uL (134-434); RBC 3.32 M/mm3 (3.60-5.2); RDW 19.9 % (11.6-15.6); WHITE BLOOD COUNT 15.2 K/mm3 (4.0-10.0)
[2022-05-20 11:00] LABS: ALBUMIN 2.8 g/dl (3.4-5.0); CALCIUM 8.8 mg/dL (8.5-10.1); MAGNESIUM 2.1 mg/dL (1.8-2.4)
[2022-05-20 11:01] LABS: BILIRUBIN,DIRECT 0.2 mg/dL (0.0-0.2); BLOOD UREA NITROGEN 13.2 mg/dL (7-18); CREATININE 0.6 mg/dL (0.55-1.3)
[2022-05-20 11:05] LABS: BILIRUBIN,TOTAL 0.5 mg/dL (0.2-1); BILIRUBIN,TOTAL 0.9 mg/dL (0.2-1); TOT PROT 7.2 g/dl (6.4-8.2); TOT PROT 7.5 g/dl (6.4-8.2)
== END | disposition home or self-care (01) ==
LOC: JONCCHEMO 06:53
PROVIDERS: ATTEND Internal Medicine Hematology & Oncology
DX: Z53.8 Procedure and treatment not carried out for other reasons (principal)
CPT/HCPCS: 36415; 80053; 80076; 83735; 85025; 96365

== ENCOUNTER 2022-05-23 16:12 | Inpatient (IN) | payer OTHER ==
[2022-05-23] MEDS ORDERED: TRIMETHOBENZAMIDE HCL 200MG/2ML INJ IM ONE ×2 (16:47→16:51)
[2022-05-23 16:49] VITALS: BMI 24.7
[2022-05-23] MEDS ORDERED: Methylnaltrexone Bromide 12 MG/0.6 ML KIT SQ ONE ×2 (17:07→21:39)
[2022-05-23] MEDS ORDERED: HYDROmorphone HCL CARPU-JECT 2 MG/1 ML DISP.SYRIN IVPUSH ONE ×3 (17:08→19:59)
[2022-05-23] MEDS ORDERED: SODIUM CHLORIDE 0.9% 500 ML INFUS.BAG IV ONE ×2 (17:15→17:56)
[2022-05-23] MEDS ORDERED: HYDROmorphone HCl 2 MG/ML VIAL ONE ×4 (17:18→22:17)
[2022-05-23 17:33] LABS: HEMATOCRIT 32.4 % (32.4-45.2); HEMOGLOBIN 10.2 GM/dL (10.7-15.3); MCH 29.3 pg (25.7-33.7); MCHC 31.4 g/dl (32.0-36.0); MEAN CELL VOLUME 93.2 fl (80-96); MEAN PLT VOLUME 8.6 fl (7.5-11.1); RBC 3.47 M/mm3 (3.60-5.2); RDW 19.9 % (11.6-15.6); WHITE BLOOD COUNT 23.7 K/mm3 (4.0-10.0)
[2022-05-23 17:35] LABS: PLATELET COUNT 40 10^3/uL (134-434)
[2022-05-23 17:40] LABS: INR 1.28 (0.83-1.09); PROTHROMBIN TIME (PATIENT) 14.8 SEC (9.7-13.0)
[2022-05-23 17:43] LABS: ACTIVATED PTT 25.6 SECONDS (25.2-36.5)
[2022-05-23 17:53] LABS: CHLORIDE 96 mmol/L (98-107); SODIUM 134 mmol/L (136-145)
[2022-05-23] MEDS ORDERED: METOCLOPRAMIDE HCL INJECTION 10 MG/2 ML VIAL IVPB ONE (17:53)
[2022-05-23 17:55] LABS: CALCIUM 9.1 mg/dL (8.5-10.1)
[2022-05-23] MEDS ORDERED: LACTATED RINGERS SOLUTION 1000 ML INFUS.BAG IV ONE (17:55)
[2022-05-23 17:56] LABS: ALBUMIN 2.9 g/dl (3.4-5.0); ANION GAP 12 MMOL/L (8-16); BLOOD UREA NITROGEN 19.1 mg/dL (7-18); CO2 26 mmol/L (21-32); GLUCOSE,RANDOM 165 mg/dL (74-106); LIPASE 34 U/L (73-393)
[2022-05-23 17:58] LABS: SGPT/ALT 33 U/L (13-61)
[2022-05-23 17:59] LABS: CREATININE 0.7 mg/dL (0.55-1.3); LACTIC ACID 2.3 mmol/L (0.4-2.0); SGOT/AST 59 U/L (15-37)
[2022-05-23 18:00] LABS: BILIRUBIN,TOTAL 0.7 mg/dL (0.2-1); TOT PROT 7.6 g/dl (6.4-8.2)
[2022-05-23 18:01] LABS: ALK PHOS 276 U/L (45-117)
[2022-05-23 18:02] LABS: ANISOCYTOSIS 1+; MACROCYTOSIS 1+; PLATELET ESTIMATE DECREASED
[2022-05-23] MEDS ORDERED: ASPIRIN 81 MG CHEWABLE TABLETS PO ONE (18:07)
[2022-05-23] MEDS ORDERED: ASPIRIN 81 MG CHEWABLE TABLETS ONE (18:17)
[2022-05-23] MEDS ORDERED: METOCLOPRAMIDE HCL INJECTION 10 MG/2 ML VIAL ONE (18:18)
[2022-05-23 20:26] LABS: EPI CELLS 3 /uL (0-25.1); HYALINE CASTS 0 /uL (0-3.1); PH,URINE 7.5 (5.0-8.0); URINE APPEARANCE CLEAR; URINE BACTERIA 18 /uL (0-1359); URINE BILIRUBIN NEGATIVE (NEGATIVE); URINE COLOR YELLOW; URINE GLUCOSE (UA) TRACE (NEGATIVE); URINE KETONE 1+ (NEGATIVE); URINE LEUK ESTERASE NEGATIVE (NEGATIVE); URINE NITRITE NEGATIVE (NEGATIVE); URINE PROTEIN NEGATIVE (NEGATIVE); URINE RBC 37 /uL (0-23.9); URINE WBC 3 /uL (0-25.8)
[2022-05-23] MEDS ORDERED: HEPARIN NA (PORCINE) 5,000 UNITS/ML 1ML VIAL IVPUSH ONE (21:45)
[2022-05-23] MEDS ORDERED: HEPARIN NA (PORCINE) 5,000 UNITS/ML 1ML VIAL IVPUSH PRN ×2 (21:50)
[2022-05-23] MEDS ORDERED: HEPARIN INFUSION - 25,000 UNITS/500 ML INFUS.BAG IVPB SCH (22:00)
[2022-05-23] MEDS ORDERED: HYDROmorphone HCl 2 MG/ML VIAL IVPUSH ONE (22:29)
[2022-05-23] MEDS ORDERED: SODIUM PHOSPHATE/NA BIPHOS 133 ML ENEMA RC ONE (22:30)
[2022-05-23] MEDS ORDERED: SODIUM CHLORIDE 1,000 ML IV SCH (23:15)
[2022-05-24] MEDS: HYDROmorphone HCl 2 MG/ML VIAL IVPB PRN ×3 (01:11→16:26)
[2022-05-24] MEDS: ENOXAPARIN NA (PORCINE) 60 MG/0.6 ML DISP.SYRIN SQ SCH ×2 (02:59→04:15)
[2022-05-24 07:21] LABS: HEMATOCRIT 28.8 % (32.4-45.2); HEMOGLOBIN 9.1 GM/dL (10.7-15.3); MCH 29.2 pg (25.7-33.7); MCHC 31.7 g/dl (32.0-36.0); MEAN CELL VOLUME 92.3 fl (80-96); MEAN PLT VOLUME 8.1 fl (7.5-11.1); RBC 3.12 M/mm3 (3.60-5.2); RDW 19.6 % (11.6-15.6); WHITE BLOOD COUNT 23.5 K/mm3 (4.0-10.0)
[2022-05-24 07:26] LABS: PLATELET COUNT 99 10^3/uL (134-434)
[2022-05-24 07:32] LABS: INR 1.3 (0.83-1.09)
[2022-05-24 07:45] LABS: ALBUMIN 2.7 g/dl (3.4-5.0); BLOOD UREA NITROGEN 11.9 mg/dL (7-18); CALCIUM 8.9 mg/dL (8.5-10.1); MAGNESIUM 2.1 mg/dL (1.8-2.4)
[2022-05-24 07:48] LABS: PHOSPHOROUS 3.5 mg/dL (2.5-4.9)
[2022-05-24 07:49] LABS: CREATININE 0.4 mg/dL (0.55-1.3)
[2022-05-24 07:50] LABS: BILIRUBIN,TOTAL 0.6 mg/dL (0.2-1)
[2022-05-24] MEDS: ONDANSETRON 4 MG/2 ML VIAL IVPUSH PRN ×2 (10:22→16:34)
[2022-05-24] MEDS: DOCUSATE SODIUM 100 MG CAPSULE (FP) PO SCH ×2 (10:22→21:19)
[2022-05-24] MEDS: PANTOPRAZOLE SODIUM 40 MG VIAL IVPUSH SCH (10:30)
[2022-05-24] MEDS: ENOXAPARIN NA (PORCINE) 80 MG/0.8 ML DISP.SYRIN SQ SCH ×2 (10:32→21:19)
[2022-05-24] MEDS: SODIUM CHLORIDE 1,000 ML IV SCH (10:33)
[2022-05-24] MEDS: ACETAMINOPHEN 1000 MG/100 ML BAG IVPB PRN ×2 (11:16→20:16)
[2022-05-24] MEDS ORDERED: SODIUM PHOSPHATE/NA BIPHOS 133 ML ENEMA RC ONE (13:36)
[2022-05-24] MEDS: METOPROLOL TARTRATE 25 MG TABLET (FP) PO SCH (21:19)
[2022-05-25] MEDS: SODIUM CHLORIDE 1,000 ML IV SCH ×4 (01:19→22:57)
[2022-05-25] MEDS ORDERED: ACETAMINOPHEN 1000 MG/100 ML BAG IVPB PRN (01:39)
[2022-05-25] MEDS: HYDROmorphone HCl 2 MG/ML VIAL IVPB PRN ×4 (04:07→21:37)
[2022-05-25] MEDS: ONDANSETRON 4 MG/2 ML VIAL IVPUSH PRN (04:36)
[2022-05-25 08:34] LABS: HEMATOCRIT 29.2 % (32.4-45.2); HEMOGLOBIN 9.1 GM/dL (10.7-15.3); MCH 29.1 pg (25.7-33.7); MCHC 31.2 g/dl (32.0-36.0); MEAN CELL VOLUME 93.3 fl (80-96); MEAN PLT VOLUME 9.3 fl (7.5-11.1); PLATELET COUNT 112 10^3/uL (134-434); RBC 3.13 M/mm3 (3.60-5.2); RDW 19.4 % (11.6-15.6); WHITE BLOOD COUNT 23.5 K/mm3 (4.0-10.0)
[2022-05-25 08:57] LABS: ALBUMIN 2.5 g/dl (3.4-5.0); BLOOD UREA NITROGEN 10.4 mg/dL (7-18); CALCIUM 8.6 mg/dL (8.5-10.1)
[2022-05-25 09:01] LABS: CREATININE 0.5 mg/dL (0.55-1.3)
[2022-05-25 09:05] LABS: TOT PROT 6.5 g/dl (6.4-8.2)
[2022-05-25] MEDS: ENOXAPARIN NA (PORCINE) 80 MG/0.8 ML DISP.SYRIN SQ SCH ×2 (09:12→21:33)
[2022-05-25] MEDS: PANTOPRAZOLE SODIUM 40 MG VIAL IVPUSH SCH (09:12)
[2022-05-25] MEDS: METOPROLOL TARTRATE 25 MG TABLET (FP) PO SCH ×2 (09:12→21:33)
[2022-05-25] MEDS: DOCUSATE SODIUM 100 MG CAPSULE (FP) PO SCH ×4 (09:12→21:33)
[2022-05-25] MEDS ORDERED: SENNOSIDES 8.6MG TABLET (FP) PO PRN (09:28)
[2022-05-25] MEDS ORDERED: BISACODYL 10 MG SUPP.RECT PR ONE ×2 (09:28→09:37)
[2022-05-25 09:30] LABS: ANISOCYTOSIS 0; MACROCYTOSIS 1+
[2022-05-25] MEDS ORDERED: MINERAL OIL ENEMA 133 ML ENEMA PR ONE (09:31)
[2022-05-25] MEDS ORDERED: MINERAL OIL ENEMA 133 ML ENEMA RC ONE (09:31)
[2022-05-25] MEDS: POLYETHYLENE GLYCOL (HEALTHYLAX) 3350 17 GM PACKET PO SCH ×2 (10:42→21:34)
[2022-05-26] MEDS: DOCUSATE SODIUM 100 MG CAPSULE (FP) PO SCH ×3 (05:54→22:00)
[2022-05-26 07:41] LABS: HEMATOCRIT 26.1 % (32.4-45.2); HEMOGLOBIN 8.2 GM/dL (10.7-15.3); MCH 29.3 pg (25.7-33.7); MCHC 31.3 g/dl (32.0-36.0); MEAN CELL VOLUME 93.5 fl (80-96); PLATELET COUNT 98 10^3/uL (134-434); RBC 2.79 M/mm3 (3.60-5.2); RDW 19.1 % (11.6-15.6); WHITE BLOOD COUNT 18.3 K/mm3 (4.0-10.0)
[2022-05-26 08:00] LABS: CALCIUM 7.9 mg/dL (8.5-10.1)
[2022-05-26 08:01] LABS: ALBUMIN 2.3 g/dl (3.4-5.0); BLOOD UREA NITROGEN 11.8 mg/dL (7-18); MAGNESIUM 1.7 mg/dL (1.8-2.4)
[2022-05-26 08:04] LABS: CREATININE 0.4 mg/dL (0.55-1.3)
[2022-05-26 08:05] LABS: TOT PROT 5.7 g/dl (6.4-8.2)
[2022-05-26 08:06] LABS: BILIRUBIN,TOTAL 0.8 mg/dL (0.2-1)
[2022-05-26 08:41] VITALS: RESP 18
[2022-05-26] MEDS: SODIUM CHLORIDE 1,000 ML IV SCH ×2 (08:59→11:20)
[2022-05-26] MEDS: ENOXAPARIN NA (PORCINE) 80 MG/0.8 ML DISP.SYRIN SQ SCH ×2 (09:03→22:00)
[2022-05-26] MEDS: PANTOPRAZOLE SODIUM 40 MG VIAL IVPUSH SCH (09:03)
[2022-05-26] MEDS: METOPROLOL TARTRATE 25 MG TABLET (FP) PO SCH ×2 (09:03→21:59)
[2022-05-26] MEDS: POLYETHYLENE GLYCOL (HEALTHYLAX) 3350 17 GM PACKET PO SCH ×2 (09:04→22:00)
[2022-05-26 09:20] LABS: ANISOCYTOSIS 1+; MACROCYTOSIS 1+
[2022-05-26] MEDS ORDERED: HYDROmorphone HCL 2 MG TABLET PO PRN (12:38)
[2022-05-26] MEDS: POTASSIUM CHLORIDE TABS 20 MEQ TABLET.ER (FP) PO SCH ×2 (12:49→21:59)
[2022-05-26] MEDS: HYDROmorphone HCl 2 MG/ML VIAL IVPB PRN ×2 (13:39→22:05)
[2022-05-26] MEDS ORDERED: APIXABAN 5 MG TABLET PO SCH (22:00)
[2022-05-27] MEDS: DOCUSATE SODIUM 100 MG CAPSULE (FP) PO SCH ×2 (05:56→06:26)
[2022-05-27 08:29] LABS: HEMATOCRIT 25.3 % (32.4-45.2); HEMOGLOBIN 7.9 GM/dL (10.7-15.3); MCHC 31.1 g/dl (32.0-36.0); MEAN PLT VOLUME 9.1 fl (7.5-11.1); PLATELET COUNT 92 10^3/uL (134-434); RBC 2.72 M/mm3 (3.60-5.2); RDW 19.7 % (11.6-15.6); WHITE BLOOD COUNT 20.5 K/mm3 (4.0-10.0)
[2022-05-27 08:41] LABS: CALCIUM 8.2 mg/dL (8.5-10.1)
[2022-05-27 08:42] LABS: ALBUMIN 2.2 g/dl (3.4-5.0); BLOOD UREA NITROGEN 13.8 mg/dL (7-18); MAGNESIUM 1.8 mg/dL (1.8-2.4)
[2022-05-27 08:45] LABS: CREATININE 0.4 mg/dL (0.55-1.3)
[2022-05-27 08:47] LABS: BILIRUBIN,TOTAL 0.7 mg/dL (0.2-1); TOT PROT 5.9 g/dl (6.4-8.2)
[2022-05-27 08:48] VITALS: BP 160/87; PULSE 91; TEMP 99.5
[2022-05-27] MEDS: PANTOPRAZOLE SODIUM 40 MG VIAL IVPUSH SCH (09:04)
[2022-05-27] MEDS: METOPROLOL TARTRATE 25 MG TABLET (FP) PO SCH (09:04)
[2022-05-27] MEDS: POLYETHYLENE GLYCOL (HEALTHYLAX) 3350 17 GM PACKET PO SCH (09:04)
[2022-05-27] MEDS: ENOXAPARIN NA (PORCINE) 80 MG/0.8 ML DISP.SYRIN SQ SCH (09:04)
[2022-05-27] MEDS: HYDROmorphone HCl 2 MG/ML VIAL IVPB PRN (09:20)
[2022-05-27 09:23] LABS: ANISOCYTOSIS 1+; MACROCYTOSIS 1+
[2022-05-27] MEDS ORDERED: MAGNESIUM OXIDE 400 MG TABLET (FP) PO ONE (09:42)
[2022-05-27] MEDS ORDERED: APIXABAN 5 MG TABLET PO SCH (22:00)
== END 2022-05-27 14:33 | disposition home health service (06) | DRG 436 ==
LOC: JER 16:12 → JERBED 18:12 → J4W 23:26
PROVIDERS: ADMIT Hospitalist; ATTEND Nurse Practitioner Acute Care
DX: C78.7 Secondary malignant neoplasm of liver and intrahepatic bile duct (principal); C23 Malignant neoplasm of gallbladder; I82.4Z1 Acute embolism and thrombosis of unspecified deep veins of right distal lower extremity; C78.00 Secondary malignant neoplasm of unspecified lung; N28.0 Ischemia and infarction of kidney; I24.8 Other forms of acute ischemic heart disease; R11.2 Nausea with vomiting, unspecified; K59.00 Constipation, unspecified; E86.0 Dehydration; D69.6 Thrombocytopenia, unspecified; D72.829 Elevated white blood cell count, unspecified; R77.8 Other specified abnormalities of plasma proteins; D64.9 Anemia, unspecified; K59.03 Drug induced constipation; T40.2X5A Adverse effect of other opioids, initial encounter; D25.9 Leiomyoma of uterus, unspecified; I10 Essential (primary) hypertension
CPT/HCPCS: 0241U-QW; 36415; 36430; 36511; 71045-TC-FY; 74177-TC; 80053; 80061; 81003; 83605; 83690; 83735; 83880; 84100; 84443; 84484; 85025; 85027; 85610; 85730; 86850; 86900; 86901; 87040; 87086; 93005; 93010; 93971-TC; 97116-GP; 97162-GP; 99285-25; P9034; P9038; Q9967